=== PATIENT | female | born 2000 | race Two or more races ===

== ENCOUNTER 2021-04-14 19:29 | Emergency (ER) | payer OTHER ==
[~2021-04-14] VITALS: Ht 154.9 cm; Wt 68.0 kg
== END 2021-04-14 23:00 | disposition home or self-care (01) ==
LOC: ER 19:40
DX: S61.432A Puncture wound without foreign body of left hand, initial encounter (principal); W31.89XA Contact with other specified machinery, initial encounter; Y92.511 Restaurant or cafe as the place of occurrence of the external cause
CPT/HCPCS: A4663